=== PATIENT | female | born 1925 | race Caucasian/White ===

== ENCOUNTER 2016-06-21 08:58 | Emergency (ER) | payer MEDICARE, BC ==
[2016-06-21] MEDS ORDERED: LISINOPRIL 10 MG TABLET PO ONE (09:19)
[2016-06-21] MEDS ORDERED: HYDROCHLOROTHIAZIDE 25 MG TABLET PO ONE (09:19)
--- NOTE | 2016-06-21 09:20 | ERNOTE ---
Medical Problem HPI - Narrative Date of Service: 06/21/16 - General Chief Complaint: General Assessment Time Seen by Provider: 06/21/16 09:10 Source: patient, family, EMS Exam Limitations: no limitations - Immun/Allergies/Home Medications Immunizations: IMMUNIZATION HX Immunizations Up to Date Yes History of Influenza Vaccine More Information Required Hx Pneumococcal Vaccination More Information Required Allergies/Adverse Reactions: Allergies No Known Allergies Allergy (Verified 06/21/16 09:16) Home Medications: HOME MEDICATIONS Simvastatin [Zocor] 40 mg PO HS 09/02/12 [Last Taken Unknown] Acetaminophen [Tylenol] 650 mg PO Q6H PRN #0 tablet 09/04/12 [Last Taken Unknown ] Clopidogrel Bisulfate [Plavix] 75 mg PO DAILY #0 tablet 09/04/12 [Last Taken Unknown] Nitroglycerin [Nitrostat] 0.4 mg SL PRN PRN #30 btl 07/16/14 [Last Taken Unknown ] Aspirin 81 mg PO DAILY 06/21/16 [Last Taken Unknown] Lisinopril 5 mg PO DAILY #30 tablet 06/21/16 [Last Taken Unknown] Meloxicam 7.5 mg PO DAILY 06/21/16 [Last Taken Unknown] Multivitamin [Multivitamins] 1 each PO DAILY 06/21/16 [Last Taken Unknown] Pantoprazole Sodium 40 mg PO DAILY 06/21/16 [Last Taken Unknown] - History of Present History Narrative: Patient comes due to L forearm numbness and a sensation of dry mouth that did not allow her to talk. Patient was found with an elevated blood pressure by EMS. Patient reported that this event started at 08:00am. Patient with no chest pain, no SOB, no loss of force or movement of any extremity, no LOC, no visual changes, and no trauma reported at the moment of evaluation. Timing: constant Severity: mild Modifying Factors - (Improves): Present: other - nothing Modifying Factors - (Worsens): Present: other - nothing Review of Systems - Review of Systems Constitutional: Absent: fever, chills, diaphoresis, weakness, fatigue, malaise, weight loss, fussy, decreased activity level EYE: Present: no symptoms reported. Absent: double vision, vision changes ENT: Present: no symptoms reported Respiratory: Present: no symptoms reported Cardiology: Present: no symptoms reported. Absent: chest pain, palpitations, syncope, edema, claudication Genitourinary: Present: no symptoms reported Musculoskeletal: Present: no symptoms reported. Absent: muscle pain, neck pain , joint pain, joint swelling Skin: Present: no symptoms reported Neurological: Present: numbness - L forearm only affected area, other - L forearm tingling sensation. Absent: anxiety, depressed, emotional problems, headache, dizziness/light-headedness, seizure, weakness, tingling, tremors, pre- existing deficit Hematologic/Lymphatic: Present: no symptoms reported Psych: Present: no symptoms reported All Other Systems: All systems neg except as marked - Patient's Past Medical History Patient History - Medical: GERD, Osteoarthritis, Other Patient History - Cardiac/Respiratory: Hyperlipidemia, Myocardial Infarction Patient History - Cancer: No Hx of Cancer Patient History - Surgical Procedures: Colonoscopy, Cardiac stent, Total Knee Replacement LMP (females 10-50): Menopausal - Family History Mother Family History - Medical: , Arthritis Father Family History - Medical: , Arthritis, Diabetes Type 1 Family History - Cardiac/Respiratory: Arrhythmias, Hypertension, Hyperlipidemia , Myocardial Infarction Brother Family History - Medical: Family History - Cardiac/Respiratory: Myocardial Infarction - Social History Living Situations: alone Abuse History: No History of abuse Psych History: No pertinent hx Alcohol Use: none Drug Use: none - Immunizations Immunizations Up to Date: Yes Hx Pneumococcal Vaccination: More Information Required to Determine History of Influenza Vaccine: More Information Required to Determine Physical Exam - Physical Exam General Appearance: Present: wd/wn, alert, no apparent distress Eye Exam: Normal inspection: bilateral, PERRL: bilateral, EOMI: bilateral Ears, Nose, Throat: Present: normal ENT inspection Neck: Present: normal inspection, nontender, full range of motion. Absent: carotid bruit Respiratory: Present: no respiratory distress, normal breath sounds, no accessory muscle use, chest nontender, lungs clear Cardiovascular/Chest: Present: regular rate, rhythm, normal peripheral pulses, systolic murmur - grade III/ Gastrointestinal/Abdominal: Present: normal bowel sounds, no organomegaly. Absent: distended, guarding, rebound Back Exam: Present: normal inspection, normal range of motion, no CVA tenderness , no vertebral tenderness Extremity Exam: Present: normal inspection, non-tender, normal range of motion, no edema Neurological Exam: Present: alert, oriented, normal mood/affect, no motor/ sensory deficits, other - GCS: 15/15, NIH Stroke Scale: 0 Skin Exam: Present: normal color, warm/dry Lymphatic Exam: Present: no adenopathy ED Progress - Date and Time Seen: Date and Time: 06/21/16 09:58 Patient will be done labs and CT. At this point patient with a non specific peripheral neuropathy condition. Patient with a low probability for Stroke and BP will be managed. 06/21/16 11:23 GCS: 15/15, NIH Stroke Scale: 0, Patient has a FMS, no distress and no gross neurologic deficits. Patient was found with cervical pathology on the CT that could be leading to peripheral neuropathy. Patient with a very low probability of having a CVA at this point. Patient is to follow up with her PCP. - Results and Orders Patient's Lab Results:: I have reviewed the patient's lab results. Results and Orders: CBC: Normal CMP: Elevated Na and Cl Trop: Negative - Vital Signs Patient's Vital Signs:: I have reviewed the patient's vital signs. Vital Signs: Vital Signs 06/21/16 08:59 Temperature 36.7 C Pulse Rate 62 Respiratory 14 Rate Blood Pressure 137/98 O2 Sat by Pulse 96 Oximetry - EKG EKG read: Interp. by me EKG Comments: HR: 58, S. Paras, No ST Elevation. 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 Departure - Departure Clinical Impression: Neuropathy, Arthritis Hypertension Qualifiers: Hypertension type: essential hypertension Qualified Code(s): I10 - Essential ( primary) hypertension Disposition: Home self-care Condition: Stable Instructions: Transient Ischemic Attack, [id number], Hypertension, Easy-to- Read Referrals: Niki Givens MD [Primary Care Provider] - Prescriptions: Lisinopril 5 mg PO DAILY #30 tablet
[2016-06-21] MEDS ORDERED: LISINOPRIL 10 MG TABLET ONE (09:31)
[2016-06-21] MEDS ORDERED: HYDROCHLOROTHIAZIDE 25 MG TABLET ONE (09:31)
[2016-06-21 09:56] LABS: Hematocrit 39.7 % (37.0-47.0); Hemoglobin 13.2 gm/dL (12.5-16.0); Mean Cell Volume 89.8 fl (78-100); Mean Corpuscular Hemoglobin 29.9 pg (27-31); Mean Corpuscular Hgb Conc 33.2 g/dl (32-36); Mean Platelet Volume 11.4 fl (6.0-9.5); Neutrophil # 3.1 K/mm3 (1.3-6.0); Neutrophil % 58.8 % (42-75.0); Platelet Count 196 K/mm3 (150-450); Red Blood Count 4.42 M/mm3 (4.2-5.4); Red Cell Distribution Width 13.4 % (11.5-14.0); White Blood Count 5.3 K/mm3 (4.0-10.5)
--- OUTSIDE RECORDS SUMMARY | 2016-06-21 10:03 | XMS REPORT | CCD ---
:1925 Author Name BERT GROVES Address [address] Unavailable [place], [place] [id number] Care Team Providers Name Role Phone RAGINI BAH Attending Physician Unavailable Vital Signs Unknown or Not Available. Allergies Unknown or Not Available. Procedures Unknown or Not Available. History of Immunizations Unknown or Not Available. Problems Unknown or Not Available. Results Unknown or Not Available. Active Medications Unknown or Not Available. Medications Administered During Visit Unknown or Not Available. Encounters Encounter Diagnosis Diagnosis Code Start Date Syncope and collapse R55 10/03/2015 Social History Smoking Status Code Start Date End Date Never smoker [id number] Patient Decision Aids Unknown or Not Available. Discharge Instructions You were admitted to [facility] on 10/03/2015 20:01 with a principal diagnosis of Syncope and collapse You were discharged from [facility] on 10/03/2015 20:01 Should you have any questions prior to discharge, please contact a member of your healthcare team. If you have left the hospital and have any questions, please contact your primary care physician. Chief Complaint and Reason For Visit Unknown or Not Available. Function Status Unknown or Not Available. Plan of Care Unknown or Not Available. Referral/Transition of Care Unknown or Not Available.
--- OUTSIDE RECORDS SUMMARY | 2016-06-21 10:03 | XMS REPORT | Continuity of Care Document ---
:1925 Author Organization [facility] ([facility]) Address [place] [address] Phone [phone] Care Team Providers Name Role Phone Niki Givens Primary Care Provider [phone] Source Comments This disclosure is being made pursuant to the Care Everywhere program, applicable federal and state laws, and may not contain all informaitonavailable regarding this patient.[facility] ([facility]) Active Allergies and Adverse Reactions Allergen Noted Date Severity Reactions Comments No Known Allergies 10/05/2014 Unknown Current Medications Prescription Sig. Disp. Refills Start Date End Date Status clopidogrel (PLAVIX) 75 Take 75 mg by mouth 10/12/2013 Active mg tablet daily nitroglycerin place 1 tablet 09/26/2011 Active (NITROSTAT) 0.4 mg SL (0.4MG) by tablet Sublingual route at the 1st sign of attack; may repeat every 5 min until relief; if pain persists after 3 tablets in 15 min, prompt medical attention is recommended simvastatin 40 mg Take 40 mg by mouth 08/17/2012 Active tablet daily PANTOPRAZOLE 40 mg EC Take 40 mg by mouth 09/05/2014 Active tablet daily. Active Problems Problem Noted Date Coronary artery disease Overview: Formatting of this note may be different from the original. 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 Retavase + stent RCA. 3.0x15mm Express) - 12/2001 ECHO/MUGA: Echo (Normal EF, Mild AR) - 09/03/2012 STRESS TESTS: SEH (Normal EF, Normal) - 07/2004 Myocardial infarction, old Hyperlipidemia TIA (transient ischemic attack) Social History Tobacco Use Types Packs/Day Years Used Date Never Smoker Alcohol Use Drinks/Week oz/Week Comments No Last Filed Vital Signs Vital Sign Reading Time Taken Blood Pressure 138/80 10/19/2015 12:23 PM CDT Pulse 68 10/19/2015 12:23 PM CDT Temperature - - Respiratory Rate - - Height 1.651 m (5' 5") 10/19/2015 12:23 PM CDT Weight 58.06 kg (128 lb) 10/19/2015 12:23 PM CDT Body Mass Index 21.3 10/19/2015 12:23 PM CDT Oxygen Saturation - - Plan of Care Date Type Specialty Providers Description 10/22/2016 Appointment Heart and Vascular YuvalLaura MD Chief Comp: Patient [address] [place] [address] Visit [phone] (Fax) Health Maintenance Due Date Last Done Comments Hepatitis B Vaccine (1 of 3 - Primary Series) 1925 Tdap Vaccine 08/12/1938 Lipid Disorder Screening 08/12/1945 Td Vaccine 08/12/1945 Zoster Vaccine 1987 Pneumococcal Vaccine (1 of 2 - PCV13) 08/12/1992 Influenza Vaccine: Seasonal (#1) 10/02/2015 Results from Last 3 Months Not on file
[2016-06-21 10:08] LABS: Prothrombin Time (Patient) 10.5 Seconds (9.4-11.4)
[2016-06-21 10:09] LABS: INR 1.01 INR (0.90-1.10); Partial Thrombolplastin Time 26.2 Seconds (24-32)
[2016-06-21 10:17] LABS: ALT 18 U/L (19-67); AST 22 U/L (0-48); Albumin * 3.3 gm/dl (3.4-5.0); Alkaline Phosphatase * 55 U/L (50-170); Anion Gap 12.2 mmol/L (6.8-13.8); BUN/Creatinine Ratio 20.8 (9.0-21.6); Bilirubin, Total 0.6 mg/dL (0.0-1.1); Blood Urea Nitrogen 15 mg/dL (3-23); Ca. Corrected For Albumin 8.5 mg/dL (8.4-10.2); Calcium * 8.3 mg/dL (7.9-10.9); Carbon Dioxide 26.8 mmol/L (24-32.6); Chloride 110 mmol/L (97-106); Glucose * 91 mg/dL (70-110); Sodium 145 mmol/L (132-142); Total Protein 6.7 gm/dL (6.2-8.2); Troponin I Less than 0.017 ng/ml (0.00-0.10)
[2016-06-21 11:27] VITALS: BP 143/62
== END 2016-06-21 11:45 | disposition home or self-care (01) ==
LOC: SUPCPDRO 08:58 → ER 08:58
DX: G62.9 Polyneuropathy, unspecified (principal); M19.90 Unspecified osteoarthritis, unspecified site; Z95.5 Presence of coronary angioplasty implant and graft; I10 Essential (primary) hypertension; K21.9 Gastro-esophageal reflux disease without esophagitis; I25.2 Old myocardial infarction